=== PATIENT | male | born 1995 | race Caucasian/White ===

== ENCOUNTER → 2016-11-27 | Outpatient (CLI) | payer OTHER ==
--- NOTE | 2016-11-27 11:32 | XR ---
EXAMINATION TYPE: XR ankle complete LT DATE OF EXAM: 11/27/2016 11:28 AM CLINICAL HISTORY: Rolling volleyball injury with pain and swelling. TECHNIQUE: Frontal, lateral and oblique images of the left ankle are obtained. COMPARISON: None. FINDINGS: There is no acute fracture/dislocation evident in the left ankle. The ankle mortise appea rs within normal limits. Mild soft tissue swelling over lateral malleolus is present. IMPRESSION: There is no acute fracture or dislocation in the left ankle.
== END | disposition home or self-care (01) ==
LOC: RADXRMAIN 11:04
PROVIDERS: ATTEND Nurse Practitioner Family
DX: S99.912A Unspecified injury of left ankle, initial encounter (principal); X58.XXXA Exposure to other specified factors, initial encounter

== ENCOUNTER 2019-04-30 09:06 | Emergency (ER) | payer BC ==
[2019-04-30 09:34] VITALS: TEMP 98
--- NOTE | 2019-04-30 10:54 | ED ---
Upper Extremity HPI - General Chief Complaint: Extremity Injury, Upper Stated Complaint: cyst popped on arm Time Seen by Provider: 04/30/19 09:44 Source: patient, RN notes reviewed, old records reviewed Mode of arrival: ambulatory Limitations: no limitations - History of Present Illness Initial Comments: Patient is a 24-year-old male coming presents emergency department today with chief complaint of right shoulder pain and popping sensation and pain with range of motion. He reports the symptoms started 1 week ago when he had a pimple or abscess was drained in his right axilla. Patient reports that that has been draining since that time. He is currently on Bactrim. Patient reports that he has some swelling and purplish discoloration when he puts his hand down completely for a long period of time. - Related Data Home Medications Medication Instructions Recorded Confirmed Dextroamphetamine/Amphetamine 30 mg PO DAILY 04/30/19 04/30/19 [Adderall] Sulfamethox-Tmp 800-160Mg [Bactrim 1 tab PO Q12HR 04/30/19 04/30/19 DS 800-160 mg] Previous Rx's Medication Instructions Recorded Ibuprofen 600 mg PO TID #30 tablet 04/30/19 Sulfamethox-Tmp 800-160Mg [Bactrim 2 tab PO Q12HR #40 tab 04/30/19 DS 800-160 mg] Allergies Allergy/AdvReac Type Severity Reaction Status Date / Time No Known Allergies Allergy Verified 09/14/15 12:19 Review of Systems ROS Statement: Those systems with pertinent positive or pertinent negative responses have been documented in the HPI. ROS Other: All systems not noted in ROS Statement are negative. Past Medical History Past Medical History: No Reported History History of Any Multi-Drug Resistant Organisms: None Reported Past Surgical History: Appendectomy, Tonsillectomy Past Anesthesia/Blood Transfusion Reactions: No Reported Reaction Past Psychological History: ADD/ADHD Smoking Status: Former smoker Past Alcohol Use History: None Reported Past Drug Use History: None Reported - Past Family History Mother Family Medical History: No Reported History General Exam Limitations: no limitations General appearance: alert, in no apparent distress Head exam: Present: atraumatic, normocephalic, normal inspection Eye exam: Present: normal appearance, PERRL, EOMI. Absent: scleral icterus, conjunctival injection, periorbital swelling ENT exam: Present: normal exam, mucous membranes moist Neck exam: Present: normal inspection. Absent: tenderness, meningismus, lymphadenopathy Respiratory exam: Present: normal lung sounds bilaterally. Absent: respiratory distress, wheezes, rales, rhonchi, stridor Cardiovascular Exam: Present: regular rate, normal rhythm, normal heart sounds. Absent: systolic murmur, diastolic murmur, rubs, gallop, clicks GI/Abdominal exam: Present: soft Extremities exam: Present: normal inspection, full ROM, normal capillary refill, other (R arm is warm and radial pulse is 2 plus. Cap refill less than 2 seconds. no pain with ROM of elbow and wrist. Patient has small 2cm abscess over arm. ). Absent: tenderness, pedal edema, joint swelling, calf tenderness Back exam: Present: normal inspection Neurological exam: Present: alert, oriented X3, CN II-XII intact Psychiatric exam: Present: normal affect, normal mood Skin exam: Present: warm, dry, intact, normal color. Absent: rash Course Vital Signs 04/30/19 04/30/19 09:30 12:45 Temperature 98.0 F Pulse Rate 65 63 Respiratory 17 16 Rate Blood Pressure 119/77 122/82 O2 Sat by Pulse 98 98 Oximetry Medical Decision Making - Medical Decision Making Patient is a 24-year-old male presents emergency department today for evaluation with complaints of right shoulder pain and numbness and tingling after a popping sensation in the shoulder. Discussed likely concern for significant injuries Patient Underwent range of motion about the same. Shoulder x-ray was reviewed and negative for any acute process. He did recently have an abscess drained from his right axilla. In this is currently draining. Patient is on Bactrim discussed increasing to 2 tablets twice a day at this time. Discussed return parameters. All cushions were answered return parameters were discussed. - Radiology Data Radiology results: report reviewed Complex 5.1 cm abscess with surrounding phlegmonous change. A slow flow is noted within the basilic vein without current thrombus. Normal 3 view shoulder. Disposition Clinical Impression: Right shoulder injury, Abscess of right axilla Disposition: HOME SELF-CARE Condition: Good Instructions (If sedation given, give patient instructions): Rotator Cuff Injury (ED), Abscess (ED) Additional Instructions: Please use medication as discussed. Please follow up with family doctor if symptoms have not improved over the next two days. Please return to the emergency room if your symptoms increase or worsen or for any other concerns. Prescriptions: Sulfamethox-Tmp 800-160Mg [Bactrim DS 800-160 mg] 2 tab PO Q12HR #40 tab Ibuprofen 600 mg PO TID #30 tablet Is patient prescribed a controlled substance at d/c from ED?: No Referrals: Stone Redman DO [Primary Care Provider] - 1-2 days Time of Disposition: 12:41
--- NOTE | 2019-04-30 10:59 | XR ---
EXAMINATION TYPE: XR shoulder complete RT DATE OF EXAM: 04/30/2019 COMPARISON: NONE HISTORY: Pain TECHNIQUE: Shoulder examined in 3 view FINDINGS: The humeral head articulates with the glenoid. The acromio-clavicular junction is normal. No acute fractures or dislocations are evident. A follow up study can be performed 7-10 days from acute trauma for continued pain. IMPRESSION: 1. Normal 3 view right Shoulder
--- NOTE | 2019-04-30 11:46 | US ---
EXAMINATION TYPE: US axilla RT DATE OF EXAM: 04/30/2019 COMPARISON: NONE CLINICAL HISTORY: pain, . Patient c/o right hand numbness and purple discoloration after hearing a po pping sensation in right axilla yesterday; is post Incision and drainage one week ago right axilla fo r infected cyst Rt axilla US: Complex fluid area seen here = 5.1 x 3.2 x 1.6cm with internal debris. There is surrou nding hyperechogenicity of the subcutaneous tissues. This is hypervascular. Patent Right Axillary Vein is documented. Upper Right Basilic Vein is seen at area of complex fluid. Right Axillary Vein and Superficial Basilic Vein is patent and compressible, but slow PW Doppler janett w is documented in Basilic Vein with noted Rouleaux effect as cephalic movement of internal echoes is observed. IMPRESSION: 1. Complex 5.1 cm abscess with surrounding phlegmonous change. 2. Slow flow is noted within the basilic vein without current thrombus.
[2019-04-30 12:50] VITALS: BP 122/82; PULSE 63; RESP 16
== END 2019-04-30 12:45 | disposition home or self-care (01) ==
LOC: EC 09:06
DX: S49.91XA Unspecified injury of right shoulder and upper arm, initial encounter (principal); L02.411 Cutaneous abscess of right axilla; F90.9 Attention-deficit hyperactivity disorder, unspecified type; Z79.899 Other long term (current) drug therapy; Z87.891 Personal history of nicotine dependence; X58.XXXA Exposure to other specified factors, initial encounter
CPT/HCPCS: 99284

== ENCOUNTER → 2020-10-25 | Outpatient (CLI) | payer BC | END | disposition home or self-care (01) | LOC: LABWHC1 16:29 | PROVIDERS: ATTEND Family Medicine | DX: Z20.822 Contact with and (suspected) exposure to COVID-19 (principal) | CPT/HCPCS: U0003; C9803; U0005 ==

== ENCOUNTER 2021-01-05 15:38 | Emergency (ER) | payer BC, OTHER ==
[2021-01-05 16:17] VITALS: BP 131/78; PULSE 97; RESP 16; TEMP 98.7
[2021-01-05] MEDS ORDERED: BACITRACIN OINT 1 EACH PACKET TOPICAL ONE (16:29)
[2021-01-05] MEDS ORDERED: DIPH,PERTUS(ACELL)TETVAC-LF 0.5 ML VIAL IM ONE (16:29)
[2021-01-05] MEDS ORDERED: LIDOCAINE 1% INJ 10MG/ML (20 ML MDV) SQ ONE (16:29)
--- NOTE | 2021-01-05 17:10 | ED ---
Wound/Laceration HPI - General Chief Complaint: Wound/Laceration Stated Complaint: Hand injury, [facility] Time Seen by Provider: 01/05/21 16:18 Source: patient Mode of arrival: ambulatory Limitations: no limitations - History of Present Illness Initial Comments: Patient is a 25-year-old male presenting to the emergency Department with complaints of a laceration to his left hand. He states he was at work, cut the lateral aspect of his left hand on a copper piece of metal. Bleeding is controlled, he is not on blood thinners. His tetanus vaccine is a not up-to-date. He has no further complaints. - Related Data Home Medications Medication Instructions Recorded Confirmed Dextroamphetamine/Amphetamine 30 mg PO DAILY 04/30/19 04/30/19 [Adderall] Sulfamethox-Tmp 800-160Mg [Bactrim 1 tab PO Q12HR 04/30/19 04/30/19 DS 800-160 mg] Previous Rx's Medication Instructions Recorded Ibuprofen 600 mg PO TID #30 tablet 04/30/19 Sulfamethox-Tmp 800-160Mg [Bactrim 2 tab PO Q12HR #40 tab 04/30/19 DS 800-160 mg] Allergies Allergy/AdvReac Type Severity Reaction Status Date / Time No Known Allergies Allergy Verified 01/05/21 16:17 Review of Systems ROS Statement: Those systems with pertinent positive or pertinent negative responses have been documented in the HPI. ROS Other: All systems not noted in ROS Statement are negative. Past Medical History Past Medical History: No Reported History History of Any Multi-Drug Resistant Organisms: None Reported Past Surgical History: Appendectomy, Tonsillectomy Past Anesthesia/Blood Transfusion Reactions: No Reported Reaction Past Psychological History: ADD/ADHD Smoking Status: Vaper Past Alcohol Use History: None Reported Past Drug Use History: None Reported - Past Family History Mother Family Medical History: No Reported History General Exam - General Exam Comments Initial Comments: GENERAL: Patient is well-developed and well-nourished. Patient is nontoxic and in no acute distress. HEAD: Atraumatic, normocephalic. EYES: Pupils equal round and reactive to light, extraocular movements intact, sclera anicteric, conjunctiva are normal. Eyelids were unremarkable. ENT: Nares patent, oropharynx clear without exudates. Moist mucous membranes. NECK: Normal range of motion, supple without lymphadenopathy or JVD. LUNGS: Unlabored respirations. Breath sounds clear to auscultation bilaterally and equal. No wheezes rales or rhonchi. HEART: Regular rate and rhythm without murmurs, rubs or gallops. ABDOMEN: Soft, nontender, normoactive bowel sounds. No guarding, no rebound. No masses appreciated. : Deferred MUSCULOSKELETAL: Normal extremities with adequate strength and normal range of motion, no pitting or edema. No clubbing or cyanosis. SKIN: Warm, Dry, normal turgor, no rashes. Patient has a 1 cm laceration to the lateral aspect of his left hand, on the outside of the fifth metacarpal. Limitations: no limitations Course Vital Signs 01/05/21 16:12 Temperature 98.7 F Pulse Rate 97 Respiratory 16 Rate Blood Pressure 131/78 O2 Sat by Pulse 96 Oximetry Procedures - Laceration Laceration #1 Consent Obtained: verbal consent Indication: laceration Site: hand (Lateral left hand) Size (cm): 1 Description: linear Depth: simple, single layer Anesthetic Used: lidocaine 1% Anesthesia Technique: local infiltration Amount (mls): 2 Pre-repair: irrigated extensively Type of Sutures: nylon Size of Sutures: 4-0 Number of Sutures: 2 Technique: simple, interrupted Patient Tolerated Procedure: well Medical Decision Making - Medical Decision Making Patient is a 25-year-old male here with a 1 L laceration to the lateral aspect of the left hand while he was at work today. Bleeding is controlled. We did update his tetanus vaccine. Wound was repaired with 2, 4-0 sutures. He tolerated procedure well. He is stable for discharge. He will keep area clean and dry, covered while working. He will sutures removed in 7-10 days. He is stable for discharge. Disposition Clinical Impression: Laceration of left hand Disposition: HOME SELF-CARE Condition: Stable Instructions (If sedation given, give patient instructions): Care For Your Stitches (ED) Additional Instructions: Please return to the Emergency Department if symptoms worsen or any other concerns. Keep covered while working. Stitches need to be removed in 7-10 days as discussed. Is patient prescribed a controlled substance at d/c from ED?: No Referrals: Stone Redman DO [Primary Care Provider] - 1-2 days Time of Disposition: 17:10
== END 2021-01-05 17:30 | disposition home or self-care (01) ==
LOC: EC 15:38
DX: S61.412A Laceration without foreign body of left hand, initial encounter (principal); F17.290 Nicotine dependence, other tobacco product, uncomplicated; F90.9 Attention-deficit hyperactivity disorder, unspecified type; Z79.1 Long term (current) use of non-steroidal anti-inflammatories (NSAID); W26.8XXA Contact with other sharp object(s), not elsewhere classified, initial encounter; Y99.0 Civilian activity done for income or pay
CPT/HCPCS: 90715; 99282; 90471; 12001; J2001

== ENCOUNTER 2021-09-15 22:38 | Emergency (ER) | payer BC, OTHER ==
[2021-09-15 22:42] VITALS: BP 135/80; PULSE 83; RESP 20; TEMP 98.4
--- NOTE | 2021-09-15 23:10 | XR ---
EXAMINATION TYPE: XR hand complete LT DATE OF EXAM: 09/15/2021 COMPARISON: NONE HISTORY: Pain. Fall. TECHNIQUE: 3 views FINDINGS: Carpal bones are intact. Metacarpals appear intact. I see no fracture nor dislocation. The fingers appear intact. IMPRESSION: Negative left hand exam.
[2021-09-16] MEDS ORDERED: CEPHALEXIN 500MG STARTER PACK 4 CAP BTL PO STA (00:33)
[2021-09-16] MEDS ORDERED: ACET/COD 300 MG/30 MG STARTER PACK 6 TAB BTL PO STA (00:33)
--- NOTE | 2021-09-16 00:37 | ED ---
General Adult HPI - General Chief complaint: Extremity Injury, Upper Stated complaint: Hand Injury, [facility] Time Seen by Provider: 09/16/21 00:09 Source: patient Mode of arrival: ambulatory Limitations: no limitations - History of Present Illness Initial comments: Dictation was produced using [employer] dictation software. please excuse any grammatical, word or spelling errors. Chief Complaint: 26-year-old male presents emergency department for crush injury to his left hand History of Present Illness: 18-year-old 9. He works at a [employer]. Patient states that at approximately 10 PM he suffered a crush injury to his left hand. Patient immediately felt pain to his left fingers. He iced his hand immediately prior to coming to the emergency department. Denies any numbness and paresthesias. Weightbearing was on his hand and unable to come off. Patient does not know when his last tetanus was. no puncture injuries to his hand. Sta gabriele that his hand was smashed with a metal chain and robot arms. There are no sharp objects on the machine. The ROS documented in this emergency department record has been reviewed and confirmed by me. Those systems with pertinent positive or negative responses have been documented in the HPI. All other systems are other negative and/or noncontributory. PHYSICAL EXAM: General Impression: Alert and oriented x3, not in acute distress HEENT: Normocephalic atraumatic, extra-ocular movements intact, pupils equal and reactive to light bilaterally, mucous membranes moist. Cardiovascular: Heart regular rate and rhythm Chest: Able to complete full sentences, no retractions, no tachypnea Motor: no focal deficits noted Neurological: CN II-XII grossly intact, no focal motor or sensory deficits noted Skin: Intact with no visualized rashes Psych: Normal affect and mood Left hand: Significant swelling to the fingers there is a blood blister on his index finger towards the palmar side no puncture injuries ED course: 26-year-old male presents crush injury to the hand. Vital signs upon arrival are within acceptable limits. X-rays unremarkable. There are no puncture injuries to the hand. His wedding ring was removed with ring cutters. Patient's tetanus was updated. With 5 day course of Keflex. - Related Data Home Medications Medication Instructions Recorded Confirmed Dextroamphetamine/Amphetamine 30 mg PO DAILY 04/30/19 04/30/19 [Adderall] Sulfamethox-Tmp 800-160Mg [Bactrim 1 tab PO Q12HR 04/30/19 04/30/19 DS 800-160 mg] Previous Rx's Medication Instructions Recorded Ibuprofen 600 mg PO TID #30 tablet 04/30/19 Sulfamethox-Tmp 800-160Mg [Bactrim 2 tab PO Q12HR #40 tab 04/30/19 DS 800-160 mg] Allergies Allergy/AdvReac Type Severity Reaction Status Date / Time No Known Allergies Allergy Verified 09/15/21 22:40 Review of Systems ROS Statement: Those systems with pertinent positive or pertinent negative responses have been documented in the HPI. ROS Other: All systems not noted in ROS Statement are negative. Past Medical History Past Medical History: No Reported History History of Any Multi-Drug Resistant Organisms: None Reported Past Surgical History: Appendectomy, Tonsillectomy Past Anesthesia/Blood Transfusion Reactions: No Reported Reaction Past Psychological History: ADD/ADHD Smoking Status: Current every day smoker, Vaper Past Alcohol Use History: Rare Past Drug Use History: None Reported - Past Family History Mother Family Medical History: No Reported History General Exam Limitations: no limitations Course Vital Signs 09/15/21 22:40 Temperature 98.4 F Pulse Rate 83 Respiratory 20 Rate Blood Pressure 135/80 O2 Sat by Pulse 98 Oximetry Disposition Clinical Impression: Hand crush injury Disposition: HOME SELF-CARE Condition: Fair Instructions (If sedation given, give patient instructions): Crush Injury (ED) Is patient prescribed a controlled substance at d/c from ED?: No Referrals: Stone Redman DO [Primary Care Provider] - 1-2 days
== END 2021-09-16 01:40 ==
LOC: EC 22:38
DX: S67.22XA Crushing injury of left hand, initial encounter (principal); F90.9 Attention-deficit hyperactivity disorder, unspecified type; F17.290 Nicotine dependence, other tobacco product, uncomplicated; Z79.1 Long term (current) use of non-steroidal anti-inflammatories (NSAID); Z79.899 Other long term (current) drug therapy; W23.0XXA Caught, crushed, jammed, or pinched between moving objects, initial encounter
CPT/HCPCS: 99283

== ENCOUNTER → 2021-09-26 | Outpatient (CLI) | payer OTHER ==
--- NOTE | 2021-09-26 23:20 | XR ---
EXAMINATION TYPE: XR hand complete LT DATE OF EXAM: 09/26/2021 COMPARISON: X-ray dated 09/15/2021 INDICATION: Pain and edema after crushing injury TECHNIQUE: 3 views of the left hand. FINDINGS: Subtle nondisplaced fracture of the diaphysis of the fourth middle phalanx without daya extension in to the articular surfaces. No definite acute fracture line identified otherwise. IMPRESSION: Nondisplaced fracture of the fourth middle phalanx as described above.
== END ==
LOC: RADXRMAIN 11:03
PROVIDERS: ATTEND Emergency Medicine
DX: S62.655A Nondisplaced fracture of middle phalanx of left ring finger, initial encounter for closed fracture (principal); X58.XXXA Exposure to other specified factors, initial encounter

== ENCOUNTER 2024-06-01 01:22 | Emergency (ER) | payer OTHER ==
[2024-06-01] MEDS: ACETAMINOPHEN TAB 500 MG TAB PO STA (01:42)
[2024-06-01] MEDS: IBUPROFEN 800 MG TAB PO STA (01:43)
--- NOTE | 2024-06-01 01:49 | ED ---
Male Urogenital HPI - General Chief complaint: Urogenital Stated complaint: Groin Pain Time Seen by Provider: 06/01/24 01:28 Source: patient, RN notes reviewed Mode of arrival: ambulatory Limitations: no limitations - History of Present Illness Initial comments: This is a 29-year-old male who presents to the emergency department for pain in the right testicle and groin. States that he was at work 4 hours ago and started to develop pain in the right testicle. This then progressed to pain in the abdomen as well. Denies any nausea or vomiting. While this is largely prominent in the right testicle, he feels like he has some discomfort in the left testicle as well. Denies any history of similar problems in the past. Denies any urinary symptoms or concern for STD exposure. - Related Data Home Medications Medication Instructions Recorded Confirmed Dextroamphetamine/Amphetamine 30 mg PO DAILY 04/30/19 04/30/19 [Adderall] Sulfamethox-Tmp 800-160Mg [Bactrim 1 tab PO Q12HR 04/30/19 04/30/19 DS 800-160 mg] Previous Rx's Medication Instructions Recorded Ibuprofen 600 mg PO TID #30 tablet 04/30/19 Sulfamethox-Tmp 800-160Mg [Bactrim 2 tab PO Q12HR #40 tab 04/30/19 DS 800-160 mg] Allergies Allergy/AdvReac Type Severity Reaction Status Date / Time No Known Allergies Allergy Verified 06/01/24 01:28 Review of Systems ROS Statement: Those systems with pertinent positive or pertinent negative responses have been documented in the HPI. ROS Other: All systems not noted in ROS Statement are negative. Past Medical History Past Medical History: No Reported History History of Any Multi-Drug Resistant Organisms: None Reported Past Surgical History: Appendectomy, Tonsillectomy Past Anesthesia/Blood Transfusion Reactions: No Reported Reaction Past Psychological History: ADD/ADHD Smoking Status: Current every day smoker, Vaper Past Alcohol Use History: Rare Past Drug Use History: None Reported - Past Family History Mother Family Medical History: No Reported History General Exam Limitations: no limitations General appearance: alert, in no apparent distress Head exam: Present: atraumatic, normocephalic, normal inspection Respiratory exam: Present: normal lung sounds bilaterally. Absent: respiratory distress, wheezes, rales, rhonchi, stridor Cardiovascular Exam: Present: regular rate, normal rhythm, normal heart sounds. Absent: systolic murmur, diastolic murmur, rubs, gallop, clicks GI/Abdominal exam: Present: soft, normal bowel sounds. Absent: distended, tenderness, guarding, rebound, rigid exam: Present: other (Bilateral testicular tenderness. Neither testicle is firm, discolored, swollen, or high riding. No penile discharge.) Expanded exam: Cremasteric Reflex Present: Left, Right Neurological exam: Present: alert, oriented X3, CN II-XII intact Psychiatric exam: Present: normal affect, normal mood Skin exam: Present: warm, dry, intact, normal color. Absent: rash Course Vital Signs 06/01/24 01:25 Temperature 97.4 F L Pulse Rate 102 H Respiratory 18 Rate Blood Pressure 132/81 O2 Sat by Pulse 99 Oximetry Medical Decision Making - Medical Decision Making This is a 29-year-old male who presents to the emergency department for testicular pain. Was pt. sent in by a medical professional or institution? @ -No Did you speak to anyone other than the patient for history? @ -No Did you review nursing and triage notes? @ -Yes, and I agree, it is accurate with regards to the patient's symptoms. Were old charts reviewed? @ -No Differential Diagnosis? @ -Testicular torsion, epididymitis, UTI, spermatocele, hydrocele, this is not meant to be an all-inclusive list. EKG interpreted by me (3pts min.)? @ -Not obtained X-rays interpreted by me (1pt min.)? @ -Not obtained CT interpreted by me (1pt min.)? @ -Not obtained U/S interpreted by me (1pt. min.)? @ -Scrotal ultrasound obtained. My interpretation identifies no evidence of a testicular torsion. What testing was considered but not performed? (CT, X-rays, U/S, labs)? Why? @ -None What meds were considered but not given? Why? @ -None Did you discuss the management of the patient with other professionals? @ -No Did you reconcile home meds? @ -No Was smoking cessation discussed for >3mins.? @ -No Was critical care preformed (if so, how long)? @ -No Were there social determinants of health that impacted care today? How? (Homelessness, low income, unemployed, alcoholism, drug addiction, transportation, low edu. Level, literacy, decrease access to med. care, fci, rehab)? @ -No Was there de-escalation of care discussed even if they declined? (Discuss DNR or withdrawal of care, Hospice)? @ -No What co-morbidities impacted this encounter? (DM, HTN, Smoking, COPD, CAD, Cancer, CVA, Hep., AIDS, mental health diagnosis, sleep apnea, morbid obesity)? @ -None Was patient admitted / discharged? @ -Discharged. On exam patient had some scrotal tenderness but otherwise had no irregularities. Scrotal ultrasound obtained revealing a right sided hydrocele and left sided varicocele. No signs of testicular torsion were identified. Lab work unremarkable. Urinalysis demonstrates occasional bacteria, however there is no leukocyte esterase or elevation in white blood cells. He was not exhibiting any urinary symptoms. Urine sent for culture. His symptoms had essentially resolved with ibuprofen and Tylenol. He was given information for follow-up with urology regarding the hydrocele and varicocele. Advised ibuprofen and Tylenol as needed for pain relief. We also discussed s upportive undergarments and elevation of the scrotum with a towel. Patient discharged home in stable condition. Case discussed with ED attending Dr. Cedeno. Return precautions reviewed in depth, the patient is instructed to return to the emergency department with any new, worsening, or concerning symptoms. Patient verbalized understanding. Undiagnosed new problem with uncertain prognosis? @ -None Drug Therapy requiring intensive monitoring for toxicity (Heparin, Nitro, Insulin, Cardizem)? @ -None Were any procedures done? @ -None Diagnosis/symptom? @ -Hydrocele, varicocele Acute, or Chronic, or Acute on Chronic? @ -Acute Uncomplicated (without systemic symptoms) or Complicated (systemic symptoms)? @ -Uncomplicated Side effects of treatment? @ -None Exacerbation, Progression, or Severe Exacerbation] @ -Not applicable Poses a threat to life or bodily function? @ -No - Lab Data Result diagrams: 06/01/24 02:20 06/01/24 02:20 Lab Results 06/01/24 06/01/24 06/01/24 Range/Units 02:20 02:20 02:20 WBC 8.4 (3.8-10.6) k/uL RBC 5.48 (4.30-5.90) m/uL Hgb 16.3 (13.0-17.5) gm/dL Hct 48.0 (39.0-53.0) % MCV 87.6 (80.0-100.0) fL MCH 29.8 (25.0-35.0) pg MCHC 34.0 (31.0-37.0) g/dL RDW 12.0 (11.5-15.5) % Plt Count 219 (150-450) k/uL MPV 7.2 Neutrophils % 64 % Lymphocytes % 23 % Monocytes % 6 % Eosinophils % 4 % Basophils % 1 % Neutrophils # 5.3 (1.3-7.7) k/uL Lymphocytes # 1.9 (1.0-4.8) k/uL Monocytes # 0.5 (0-1.0) k/uL Eosinophils # 0.3 (0-0.7) k/uL Basophils # 0.1 (0-0.2) k/uL Sodium 138 (137-145) mmol/L Potassium 3.5 (3.5-5.1) mmol/L Chloride 109 H (98-107) mmol/L Carbon Dioxide 23 (22-30) mmol/L Anion Gap 6 mmol/L BUN 9 (9-20) mg/dL Creatinine 0.83 (0.66-1.25) mg/dL Est GFR (CKD-EPI)AfAm >90 (>60 ml/min/1.73 sqM) Est GFR (CKD-EPI)NonAf >90 (>60 ml/min/1.73 sqM) Glucose 93 (74-99) mg/dL Plasma Lactic Acid Norbert (0.7-2.0) mmol/L Calcium 8.9 (8.4-10.2) mg/dL Total Bilirubin 1.5 H (0.2-1.3) mg/dL AST 28 (17-59) U/L ALT 35 (4-49) U/L Alkaline Phosphatase 69 (38-126) U/L Total Protein 6.6 (6.3-8.2) g/dL Albumin 4.2 (3.5-5.0) g/dL Urine Color Colorless Urine Appearance Cloudy (Clear) Urine pH 5.5 (5.0-8.0) Ur Specific Carey 1.006 (1.001-1.035) Urine Protein Negative (Negative) Urine Glucose (UA) Negative (Negative) Urine Ketones Negative (Negative) Urine Blood Negative (Negative) Urine Nitrite Negative (Negative) Urine Bilirubin Negative (Negative) Urine Urobilinogen <2.0 (<2.0) mg/dL Ur Leukocyte Esterase Negative (Negative) Ur Squamous Epith Cells <1 (0-4) /hpf Urine Bacteria Occasional H (None) /hpf Urine Mucus Occasional H (None) /hpf 06/01/24 Range/Units 02:20 WBC (3.8-10.6) k/uL RBC (4.30-5.90) m/uL Hgb (13.0-17.5) gm/dL Hct (39.0-53.0) % MCV (80.0-100.0) fL MCH (25.0-35.0) pg MCHC (31.0-37.0) g/dL RDW (11.5-15.5) % Plt Count (150-450) k/uL MPV Neutrophils % % Lymphocytes % % Monocytes % % Eosinophils % % Basophils % % Neutrophils # (1.3-7.7) k/uL Lymphocytes # (1.0-4.8) k/uL Monocytes # (0-1.0) k/uL Eosinophils # (0-0.7) k/uL Basophils # (0-0.2) k/uL Sodium (137-145) mmol/L Potassium (3.5-5.1) mmol/L Chloride (98-107) mmol/L Carbon Dioxide (22-30) mmol/L Anion Gap mmol/L BUN (9-20) mg/dL Creatinine (0.66-1.25) mg/dL Est GFR (CKD-EPI)AfAm (>60 ml/min/1.73 sqM) Est GFR (CKD-EPI)NonAf (>60 ml/min/1.73 sqM) Glucose (74-99) mg/dL Plasma Lactic Acid Norbert 1.7 (0.7-2.0) mmol/L Calcium (8.4-10.2) mg/dL Total Bilirubin (0.2-1.3) mg/dL AST (17-59) U/L ALT (4-49) U/L Alkaline Phosphatase (38-126) U/L Total Protein (6.3-8.2) g/dL Albumin (3.5-5.0) g/dL Urine Color Urine Appearance (Clear) Urine pH (5.0-8.0) Ur Specific Carey (1.001-1.035) Urine Protein (Negative) Urine Glucose (UA) (Negative) Urine Ketones (Negative) Urine Blood (Negative) Urine Nitrite (Negative) Urine Bilirubin (Negative) Urine Urobilinogen (<2.0) mg/dL Ur Leukocyte Esterase (Negative) Ur Squamous Epith Cells (0-4) /hpf Urine Bacteria (None) /hpf Urine Mucus (None) /hpf - Radiology Data Radiology results: report reviewed, image reviewed Disposition Clinical Impression: Hydrocele, right, Left varicocele Disposition: HOME SELF-CARE Instructions (If sedation given, give patient instructions): Hydrocele (ED), Varicocele (ED), Testicle Pain (ED) Additional Instructions: Return to the emergency department with any new, worsening, or concerning sympto ms. Alternate with ibuprofen and Tylenol as needed for pain relief. Wear supportive undergarments. You can try elevating the scrotum using a towel. Contact the urologist listed below for a follow-up appointment. Follow up with your primary care provider in 1-2 days. Is patient prescribed a controlled substance at d/c from ED?: No Referrals: Lisa Curry NPC [Primary Care Provider] - 1-2 days Ector Manriquez MD [STAFF PHYSICIAN] - 1-2 days Time of Disposition: 03:40
--- NOTE | 2024-06-01 02:29 | US ---
EXAM: US Scrotum CLINICAL HISTORY: ITS.REASON US Reason: Right sided scrotal pain TECHNIQUE: Real-time ultrasound of the scrotum with color Doppler and image documentation. COMPARISON: No relevant prior studies available. FINDINGS: EXAM MEASUREMENTS: TESTICLES: Right Testicle: 4.8 x 3.6 x 2.6 cm Left Testicle: 4.5 x 4.2 x 2.6 cm EPIDIDYMIS HEAD: Right Epididymis: 0.5 x 0.7 x 0.9 cm Left Epididymis: 0.6 x 1.2 x 1.0 cm Doppler performed to assess for testicular vascularity; good bilateral color flow and waveforms are seen. There is no evidence of testicular torsion. Presence of hydroceles: Right Presence of varicoceles: Left IMPRESSION: Right hydrocele. Left varicocele.
[2024-06-01 02:47] LABS: Appearance,Urine Cloudy (Clear); Bacteria,Urine Occasional /hpf; Bilirubin,Urine Negative (Negative); Blood,Urine Negative (Negative); Color,Urine Colorless; Glucose,Urine (UA) Negative (Negative); Ketones,Urine Negative (Negative); Leukocyte Esterase,Urine Negative (Negative); Mucus,Urine Occasional /hpf; Nitrite,Urine Negative (Negative); PH, Urine 5.5 (5.0-8.0); Protein,Urine Negative (Negative); Specific Gravity,Urine 1.006 (1.001-1.035); Squamous Epithelial Cell,Urine <1 /hpf (0-4); Urobilinogen,Urine <2.0 mg/dL (<2.0)
[2024-06-01 02:50] LABS: ALT 35 U/L (4-49); AST 28 U/L (17-59); African American GFR (CKD) >90 (>60 ml/min/1.73 sqM); Albumin 4.2 g/dL (3.5-5.0); Alkaline Phosphatase 69 U/L (38-126); Anion Gap 6 mmol/L; Blood Urea Nitrogen 9 mg/dL (9-20); Calcium 8.9 mg/dL (8.4-10.2); Carbon Dioxide 23 mmol/L (22-30); Chloride 109 mmol/L (98-107); Glucose 93 mg/dL (74-99); Non-African American GFR(CKD) >90 (>60 ml/min/1.73 sqM); Potassium 3.5 mmol/L (3.5-5.1); Sodium 138 mmol/L (137-145); Total Bilirubin 1.5 mg/dL (0.2-1.3); Total Protein 6.6 g/dL (6.3-8.2)
[2024-06-01 02:58] LABS: Basophils # (A) 0.1 k/uL (0-0.2); Basophils % (A) 1 %; Eosinophils # (A) 0.3 k/uL (0-0.7); Eosinophils % (A) 4 %; HGB 16.3 gm/dL (13.0-17.5); Lymphocytes # (A) 1.9 k/uL (1.0-4.8); Lymphocytes % (A) 23 %; MCH 29.8 pg (25.0-35.0); MCV 87.6 fL (80.0-100.0); Mean Platelet Volume 7.2; Monocytes # (A) 0.5 k/uL (0-1.0); Monocytes % (A) 6 %; Neutrophils # (A) 5.3 k/uL (1.3-7.7); Neutrophils % (A) 64 %; Platelet Count 219 k/uL (150-450); RBC 5.48 m/uL (4.30-5.90); WBC 8.4 k/uL (3.8-10.6)
[2024-06-01 04:01] VITALS: BP 126/83; PULSE 70; RESP 16; TEMP 97.8
== END 2024-06-01 03:47 | disposition home or self-care (01) ==
LOC: EC 01:22
CPT/HCPCS: 36415; 76870; 80053; 81001; 83605; 85025; 87086; 93975; 99284

== ENCOUNTER 2025-03-02 07:47 | Emergency (ER) | payer OTHER ==
--- NOTE | 2025-03-02 08:28 | ED ---
General Adult HPI - General Chief complaint: Extremity Injury, Lower Stated complaint: Insect bite, right leg injury Time Seen by Provider: 03/02/25 07:51 Source: patient, family Mode of arrival: ambulatory Limitations: no limitations - History of Present Illness Initial comments: Dictation was produced using [employer]ik[employer] dictation software. please excuse any gr ammatical, word or spelling errors. 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 States on Saturday he had noticed a bug or spider was in his pants and bit him multiple times. Over the following few days he has had itchy red rash to his right lower extremity in multiple locations. Denies any pain except when the area is pressed hard. No other complaints. The ROS documented in this emergency department record has been reviewed and confirmed by me. Those systems with pertinent positive or negative responses have been documented in the HPI. All other systems are other negative and/or noncontributory. - Related Data Home Medications Medication Instructions Recorded Confirmed Dextroamphetamine/Amphetamine 30 mg PO DAILY 04/30/19 04/30/19 [Adderall] Sulfamethox-Tmp 800-160Mg [Bactrim 1 tab PO Q12HR 04/30/19 04/30/19 DS 800-160 mg] Previous Rx's Medication Instructions Recorded Ibuprofen 600 mg PO TID #30 tablet 04/30/19 Sulfamethox-Tmp 800-160Mg [Bactrim 2 tab PO Q12HR #40 tab 04/30/19 DS 800-160 mg] Cephalexin [Keflex] 500 mg PO Q6HR 5 Days #20 cap 03/02/25 Allergies Allergy/AdvReac Type Severity Reaction Status Date / Time No Known Allergies Allergy Verified 06/01/24 01:28 Review of Systems ROS Statement: Those systems with pertinent positive or pertinent negative responses have been documented in the HPI. ROS Other: All systems not noted in ROS Statement are negative. Past Medical History Past Medical History: No Reported History History of Any Multi-Drug Resistant Organisms: None Reported Past Surgical History: Appendectomy, Tonsillectomy Past Anesthesia/Blood Transfusion Reactions: No Reported Reaction Past Psychological History: ADD/ADHD Smoking Status: Current every day smoker, Vaper Past Alcohol Use History: Rare Past Drug Use History: None Reported - Past Family History Mother Family Medical History: No Reported History General Exam - General Exam Comments Initial Comments: PHYSICAL EXAM: General Impression: Alert and oriented x3, not in acute distress HEENT: Normocephalic atraumatic, extra-ocular movements intact, pupils equal and reactive to light bilaterally, mucous membranes moist. Cardiovascular: Heart regular rate and rhythm Chest: Able to complete full sentences, no retractions, no tachypnea Abdomen: abdomen soft, non-tender, non-distended, no organomegaly Musculoskeletal: Pulses present and equal in all extremities, no peripheral edema Motor: no focal deficits noted Neurological: CN II-XII grossly intact, no focal motor or sensory deficits noted Skin: Small nonraised erythematous areas to the right lower extremity and 3 different locations Psych: Normal affect and mood Limitations: no limitations Course Vital Signs 03/02/25 07:53 Temperature 97.9 F Pulse Rate 76 Respiratory 20 Rate Blood Pressure 124/72 O2 Sat by Pulse 98 Oximetry Medical Decision Making - Medical Decision Making Was pt. sent in by a medical professional or institution ([facility], SPORTS ATTORNEY, urgent care, hospital, or fpc...) When possible be specific @ -No Did you speak to anyone other than the patient for history (EMS, parent, family, police, friend...)? What history was obtained from this source @ -No Did you review nursing and triage notes (agree or disagree)? Why? @ -I reviewed and agree with nursing and triage notes Were old charts reviewed (outside hosp., previous admission, EMS record, old EKG, old radiological studies, urgent care reports/EKG's, fpc records)? Report findings @ -No old charts were reviewed Differential Diagnosis (chest pain, altered mental status, abdominal pain women, abdominal pain men, vaginal bleeding, musculoskeletal, weakness, fever, dyspnea, syncope, headache, dizziness, GI bleed, back pain, seizure, CVA, palpatations, mental health)? @ -Cellulitis, septic arthritis, contact dermatitis EKG interpreted by me (3pts min.). @ -None done X-rays interpreted by me (1pt min.). @ -None done CT interpreted by me (1pt min.). @ -None done U/S interpreted by me (1pt. min.). @ -None done What testing was considered but not performed or refused? (CT, X-rays, U/S, labs)? Why? @ -None What meds were considered but not given or refused? Why? @ -None Was smoking cessation discussed for >3mins.? @ -No Were there social determinants of health that impacted care today? How? (Homelessness, low income, unemployed, alcoholism, drug addiction, transportation, low edu. Level, literacy, decrease access to med. care, care home, rehab)? @ -No Was there de-escalation of care discussed even if they declined (Discuss DNR or withdrawal of care, Hospice)? DNR status @ -No What co-morbidities impacted this encounter? (DM, HTN, Smoking, COPD, CAD, Cancer, CVA, ARF, Chemo, Hep., AIDS, mental health diagnosis, sleep apnea, morbid obesity)? @ -None Was patient admitted / discharged? Hospital course, mention meds given and route, prescriptions, significant lab abnormalities, going to OR and other pertinent info. @ -29-year-old male with erythematous areas to the right lower extremity after being bit by a insect multiple occasions right leg while he was outside at work. Vital signs stable. Suspect cellulitis. Patient prescribed antibiotics discharged advised follow-up with primary care doctor Did you discuss the management of the patient with other professionals (professionals i.e. , PA, SPORTS ATTORNEY, lab, RT, psych nurse, social work manager, deer farm worker, teacher, public records officer, heel caser)? Give summary @ -No Was critical care preformed (if so, how long)? @ -No Undiagnosed new problem with uncertain prognosis? @ -No Drug Therapy requiring intensive monitoring for toxicity (Heparin, Nitro, Insulin, Cardizem)? @ -No Were any procedures done? @ -No Diagnosis/symptom? Acute, or Chronic, or Acute on Chronic? Uncomplicated (without systemic symptoms) or Complicated (systemic symptoms)? @ -Bug bite Side effects of treatment? @ -No Exacerbation, Progression, or Severe Exacerbation? @ -No Poses a threat to life or bodily function? How? (Chest pain, [place], [place], pneumonia, PE, COPD, DKA, ARF, appy, cholecystitis, CVA, Diverticulitis, Homicidal, Suicidal, threat to staff... and all critical care pts) @ -No Disposition Clinical Impression: Bug bite Disposition: HOME SELF-CARE Condition: Fair Instructions (If sedation given, give patient instructions): Insect Bite or Sting (ED) Prescriptions: Cephalexin [Keflex] 500 mg PO Q6HR 5 Days #20 cap Is patient prescribed a controlled substance at d/c from ED?: No Referrals: Stone Redman DO [Primary Care Provider] - 1-2 days Time of Disposition: 08:28
[2025-03-02 08:49] VITALS: BP 122/76; PULSE 75; RESP 18; TEMP 98
== END 2025-03-02 09:19 | disposition home or self-care (01) ==
LOC: SUPCPDRO 07:47 → EC 07:47
DX: S80.861A Insect bite (nonvenomous), right lower leg, initial encounter (principal); F17.290 Nicotine dependence, other tobacco product, uncomplicated; W57.XXXA Bitten or stung by nonvenomous insect and other nonvenomous arthropods, initial encounter
CPT/HCPCS: 99283